=== PATIENT | male | born 1995 | race Caucasian/White ===

== ENCOUNTER 2019-05-13 08:30 | Emergency (ER) | payer OTHER ==
[~2019-05-13] VITALS: Ht 193 cm; Wt 108.3 kg
--- NOTE | 2019-05-13 09:15 | REP ---
Left elbow for views : There is no fracture or dislocation. Mineralization and joint spaces are normal. There are no calcifications or foreign bodies. Impression: Negative left elbow . Electronically Signed by Ming Persaud MD 05/13/2019 09:06 A
[2019-05-13] MEDS ORDERED: NAPR-837 PO (09:49)
[2019-05-13 09:56] VITALS: BP 149/88
== END 2019-05-13 09:57 | disposition home or self-care (01) ==
LOC: M ED 08:30
DX: S53.402A Unspecified sprain of left elbow, initial encounter (principal); S50.02XA Contusion of left elbow, initial encounter; X58.XXXA Exposure to other specified factors, initial encounter; Y92.89 Other specified places as the place of occurrence of the external cause; M70.22 Olecranon bursitis, left elbow

== ENCOUNTER 2020-11-24 03:34 | Emergency (ER) | payer OTHER ==
[~2020-11-24] VITALS: Ht 193 cm; Wt 111.2 kg
[~2020-11-24 03:34] MED LIST: NAPR-837 PO
[2020-11-24] MEDS ORDERED: LIDOCAINE 5% (LIDODERM) PATCH TD ONE (06:55)
[2020-11-24] MEDS ORDERED: CYCL5TAB PO (07:23)
[2020-11-24] MEDS ORDERED: LIDO5DIS41 TOP (07:23)
[2020-11-24 07:42] VITALS: BP 128/72
[2020-11-24] MEDS ORDERED: **NOTE PATIENT COMMENT** MISC XX SCH (21:00)
== END 2020-11-24 07:43 | disposition home or self-care (01) ==
LOC: M ED 06:14
DX: S29.012A Strain of muscle and tendon of back wall of thorax, initial encounter (principal); X50.9XXA Other and unspecified overexertion or strenuous movements or postures, initial encounter; Y92.89 Other specified places as the place of occurrence of the external cause; Y93.B9 Activity, other involving muscle strengthening exercises